=== PATIENT | female | born 1950 | race Caucasian/White ===

== ENCOUNTER 2018-12-01 11:54 | Emergency (ER) | payer MEDICARE, OTHER ==
[~2018-12-01] VITALS: Ht 165.1 cm; Wt 99.8 kg
[2018-12-01] MEDS ORDERED: ATOR40TA PO (12:06)
[2018-12-01] MEDS ORDERED: CHLO25B PO (12:06)
[2018-12-01] MEDS ORDERED: SERT25 PO (12:06)
[2018-12-01] MEDS ORDERED: FAMO20 PO (12:06)
[2018-12-01] MEDS ORDERED: LISI20 PO (12:06)
[2018-12-01] MEDS ORDERED: NIFE60ER PO (12:06)
[2018-12-01] MEDS ORDERED: K-Dur10 MEQ (12:06)
[2018-12-01 13:14] LABS: Albumin, Blood 3.5 g/dL (3.4-5.0); Albumin/Globulin Ratio 0.7 (0.8-1.8); Bilirubin, Total 0.6 mg/dL (0.1-1.0); Bun/Creatinine Ratio 30.3 (12.0-20.0); Calcium, Blood 8.9 mg/dL (8.5-10.1); Creatinine, Blood 1.09 mg/dL (0.40-1.00); Globulin, Blood 4.9 g/dL (2.2-4.0); Total Protein, Blood 8.4 g/dL (6.4-8.2)
[2018-12-01 13:42] LABS: BASOPHILS ABSOLUTE AUTO 0.04 K/mm3 (0.00-0.23); BASOPHILS PERCENT AUTO 0 % (0-2); EOSINOPHILS ABSOLUTE AUTO 0.09 K/mm3 (0.00-0.68); EOSINOPHILS PERCENT AUTO 1 % (0-6); Hematocrit 43.9 % (33.0-51.0); Hemoglobin 14.5 g/dL (11.5-16.0); IMMATURE GRAN ABSOLUTE AUTO 0.03 K/mm3 (0.00-0.10); IMMATURE GRAN PERCENT AUTO 0 % (0-1); LYMPHOCYTES ABSOLUTE AUTO 1.66 K/mm3 (0.84-5.20); LYMPHOCYTES PERCENT AUTO 17 % (21-46); MONOCYTES ABSOLUTE AUTO 0.51 K/mm3 (0.16-1.47); MONOCYTES PERCENT AUTO 5 % (4-13); Mean Corpuscular HGB 31.3 pg (26.0-34.0); Mean Corpuscular Volume 95 fL (80-100); Mean Platelet Volume 8.8 fL (9.1-12.4); NEUTROPHILS ABSOLUTE AUTO 7.65 K/mm3 (1.96-9.15); NEUTROPHILS PERCENT AUTO 77 % (41-73); Platelet Count 365 K/mm3 (150-400); RDW Coefficient Variation 12.8 % (11.7-14.2); RDW Standard Deviation 44.6 fL (35.1-46.3); Red Blood Cell Count 4.63 M/mm3 (3.80-5.20); White Blood Cell Count 9.98 K/mm3 (4.00-11.30)
[2018-12-01 15:00] LABS: Source, Urine Clean Catch
[2018-12-01 15:17] LABS: Appearance, Urine Hazy (Clear); Blood, Urine 1+ (Neg); Glucose Qualitative, Urine Neg (Neg); Ketones, Urine 1+ (Neg); Leukocyte Esterase, Urine 3+ (Neg); Nitrite, Urine Neg (Neg); Protein, Urine 2+ (Neg); Urobilinogen, Urine 1+ (Normal)
[2018-12-01 15:45] LABS: Bilirubin, Urine 2+ (Neg); Color, Urine Amber (P-Yellow)
[2018-12-01 15:50] LABS: White Blood Cells, Urine 50-100 /hpf (0-5)
[2018-12-01 15:51] LABS: Bacteria Many /hpf; Squamous Epithelial Cells Many /hpf (Few)
[2018-12-01] MEDS ORDERED: Amoxicillin500 MG PO (16:16)
== END 2018-12-01 17:08 | disposition home or self-care (01) ==
LOC: ER 11:54
PROVIDERS: Emergency Medicine; Physician Assistant
DX: R44.3 Hallucinations, unspecified (principal); E86.0 Dehydration; N39.0 Urinary tract infection, site not specified; Z79.899 Other long term (current) drug therapy; K21.9 Gastro-esophageal reflux disease without esophagitis; Z86.73 Personal history of transient ischemic attack (TIA), and cerebral infarction without residual deficits; Z87.891 Personal history of nicotine dependence
CPT/HCPCS: 36415; 70450; 71046; 80053; 81001; 82947; 85025; 87086; 87147; 93005; 93010; 96361; 96374; 99284-25; J0696; J7120